=== PATIENT | male | born 1995 | race Caucasian/White ===

== ENCOUNTER 2019-01-19 14:41 | Emergency (ER) | payer OTHER ==
[~2019-01-19] VITALS: Ht 180.3 cm; Wt 63.5 kg
[~2019-01-19 14:41] MED LIST: CLEOCIN HCL150 MG PO; MEDROLDOSEPACK PO; NOHOMEMEDICATIONS
[2019-01-19 15:27] LABS: ABSOLUTE LYMPHOCYTES 0.6 thou/uL (0.8-5.3); ABSOLUTE MONOCYTES 0.4 thou/uL (0.0-1.2); ABSOLUTE NEUTROPHILS 2.1 thou/uL (1.6-8.1); BASOPHILS 0.4 %; EOSINOPHILS 0.1 %; HEMATOCRIT 42.2 % (42.0-52.0); HEMOGLOBIN 14.9 gm/dL (14.0-18.0); LYMPHOCYTES 20.1 %; MCH 31.1 pg (26.0-34.0); MCHC 35.3 g/dL (28.0-37.0); MONOCYTES 13.1 %; MPV 7.4 fl. (7.2-11.1); NUCLEATED RBCS 0 /100WBC; PLATELET COUNT* 209 thou/uL (150-400); POLYS 66.3 %; RBC 4.79 mil/uL (4.50-6.00); RDW-CV 12.3 % (10.5-14.5); WBC 3.2 thou/uL (4.0-11.0)
[2019-01-19 15:38] LABS: CALCIUM 9.7 mg/dL (8.5-10.1); POTASSIUM 3.8 mmol/L (3.5-5.1)
[2019-01-19 15:39] LABS: APTT 29.5 Seconds (25.0-31.3); INR 1.1; PROTIME 10.8 Seconds (9.20-11.50)
[2019-01-19 15:42] LABS: ALBUMIN 4.5 g/dL (3.4-5.0); TOTAL BILIRUBIN 0.9 mg/dL (<0.1-1.0); TOTAL PROTEIN 8.3 g/dL (6.4-8.2)
[2019-01-19] MEDS ORDERED: ONDANSETRON HCL4 M2 PO (16:49)
[2019-01-19 17:32] VITALS: BP 118/59
== END 2019-01-19 17:33 | disposition home or self-care (01) ==
LOC: M.ERS 14:41
PROVIDERS: Nurse Practitioner Family
DX: K52.9 Noninfective gastroenteritis and colitis, unspecified (principal); K62.5 Hemorrhage of anus and rectum